=== PATIENT | female | born 1935 | race Caucasian/White ===

== ENCOUNTER 2018-10-30 08:40 | Emergency (ER) | payer MEDICARE ==
[~2018-10-30] VITALS: Ht 154.9 cm; Wt 44.9 kg
--- NOTE | 2018-10-30 09:04 | NUR ---
PT REPORTS HAVING MULTIPLE GI ISSUES FROM CONTIPATION WHICH SHE RECIEVED AND [facility] FOR (SHE REPORTS HAVING "GI UPSET FOR ONE MONTH", NOW PT REPORTS DIARHHEA/VOMITTING FOR THE PAST TWO DAYS. SHE STATES SHE HAS NOT BEEN ABLE TO KEEP FOOD OR DRINK DOWN SINCE YESTERDAY 10/29. PT ON NIBP, CONT PULSE OX. FAMLIY AT BEDSIDE.
[2018-10-30] MEDS ORDERED: SODIUM CHLORIDE FLUSH 10ML SYR IVF ONE (09:30)
--- NOTE | 2018-10-30 09:54 | NUR ---
PIV INITIATED, PT TO GO TO CT ABD. LABS DRAWN, SIG OTHER AT BEDSIDE, NO NEEDS AT THIS TIME
[2018-10-30 10:11] LABS: BASOPHILS # (AUTO) 0.02 x10^3/uL (0-0.1); BASOPHILS % (AUTO) 0 % (0-1); EOSINOPHILS # (AUTO) 0.05 x10^3/uL (0-0.4); EOSINOPHILS % (AUTO) 1 % (1-7); LYMPHOCYTES # (AUTO) 0.73 x10^3/uL (1-3.4); LYMPHOCYTES % (AUTO) 10 % (22-44); MD NO; MEAN CORPUSCULAR HEMOGLOBIN 32.1 pg (27.0-34.8); MEAN CORPUSCULAR HGB CONC 33.4 g/dL (32.4-35.8); MEAN CORPUSCULAR VOLUME 96.2 fL (80-100); MEAN PLATELET VOLUME 8.5 fL (7.4-10.4); MONOCYTES # (AUTO) 0.58 x10^3/uL (0.2-0.8); MONOCYTES % (AUTO) 8 % (2-9); NEUTROPHILS # (AUTO) 5.63 x10^3/uL (1.8-6.8); NEUTROPHILS % (AUTO) 80 % (42-75); PLATELET COUNT 210 x10^3/uL (130-400); RED BLOOD COUNT 4.38 x10^6/uL (3.82-5.3); RED CELL DISTRIBUTION WIDTH 13.5 % (9.6-15.2)
[2018-10-30 10:19] LABS: ALANINE AMINOTRANSFERASE 21 U/L (12-78); ALBUMIN 3.8 g/dL (3.4-5.0); ANION GAP 10 mmol/L (5-15); CALCIUM 9.7 mg/dL (8.5-10.1); CHLORIDE 109 mmol/L (98-107); CREATININE 1.56 mg/dL (0.55-1.02)
[2018-10-30 10:21] LABS: ALKALINE PHOSPHATASE 58 U/L (45-117); BILIRUBIN,TOTAL 0.7 mg/dL (0.2-1.0); TOTAL PROTEIN 7.4 g/dL (6.4-8.2)
--- NOTE | 2018-10-30 11:07 | NUR ---
PT WALKED TO RESTROOM, UA SENT
[2018-10-30 11:23] VITALS: BP 146/70
[2018-10-30 11:39] LABS: MICROSCOPIC AUTO
[2018-10-30 11:44] LABS: CULTURE INDICATED? YES
--- NOTE | 2018-10-30 12:05 | NUR ---
[facility] UPDATED PT ON POC, PT DENIES NEEDS AT THIS TIME. RESTING COMFORTABLY ON GURNEY
--- NOTE | 2018-10-30 12:34 | NUR ---
Patient/Caregiver given discharge instructions and they have confirmed that they understand the instructions. Patient ambulatory with steady gait.
== END 2018-10-30 12:54 | disposition home or self-care (01) ==
LOC: ED 10:13
DX: K29.50 Unspecified chronic gastritis without bleeding (principal); N28.9 Disorder of kidney and ureter, unspecified; N30.00 Acute cystitis without hematuria; I10 Essential (primary) hypertension
CPT/HCPCS: 36415; 74176; 80053; 81001; 83605; 83690; 85025; 87086; 93005; 99284

== ENCOUNTER 2018-11-07 08:50 | Inpatient (IN) | payer MEDICARE ==
[~2018-11-07] VITALS: Ht 154.9 cm; Wt 46.9 kg
--- NOTE | 2018-11-07 09:24 | NUR ---
orieted to room. pt in gown. connected to monitor.
--- NOTE | 2018-11-07 09:35 | NUR ---
PA at bs.
--- NOTE | 2018-11-07 09:35 | NUR ---
pt states this has been an ongiong issue for her. seen here for the same symptoms a few days ago. has a confirmed appointment with the [facility] but not until december. descibes her vomitus as green, thick. unable to keep anything down including blood pressure medications.
[2018-11-07] MEDS ORDERED: ONDANSETRON 2MG/ML, 2ML ONE (09:58)
[2018-11-07] MEDS ORDERED: FAMOTIDINE 20 MG/2 ML ONE (09:58)
[2018-11-07] MEDS ORDERED: FAMOTIDINE 20 MG/2 ML IVP ONE (10:00)
[2018-11-07] MEDS ORDERED: ONDANSETRON 2MG/ML, 2ML IVPush ONE (10:00)
[2018-11-07] MEDS ORDERED: SODIUM CHLORIDE FLUSH 10ML SYR IVF ONE (10:00)
--- NOTE | 2018-11-07 10:18 | NUR ---
recieved report from suki fuller. dr. ballard at bedside. pt medicated per md order.
[2018-11-07 10:30] LABS: BASOPHILS % (AUTO) 0 % (0-1); EOSINOPHILS # (AUTO) 0.16 x10^3/uL (0-0.4); EOSINOPHILS % (AUTO) 2 % (1-7); LYMPHOCYTES # (AUTO) 0.69 x10^3/uL (1-3.4); LYMPHOCYTES % (AUTO) 8 % (22-44); MD NO; MEAN CORPUSCULAR HGB CONC 33.4 g/dL (32.4-35.8); MEAN CORPUSCULAR VOLUME 98.8 fL (80-100); MEAN PLATELET VOLUME 9.4 fL (7.4-10.4); MONOCYTES # (AUTO) 0.73 x10^3/uL (0.2-0.8); MONOCYTES % (AUTO) 9 % (2-9); NEUTROPHILS # (AUTO) 6.78 x10^3/uL (1.8-6.8); NEUTROPHILS % (AUTO) 81 % (42-75); PLATELET COUNT 210 x10^3/uL (130-400); RED BLOOD COUNT 4.66 x10^6/uL (3.82-5.3); RED CELL DISTRIBUTION WIDTH 13.2 % (9.6-15.2)
[2018-11-07 10:40] LABS: CHLORIDE 105 mmol/L (98-107)
[2018-11-07 10:41] LABS: ALANINE AMINOTRANSFERASE 24 U/L (12-78); ALBUMIN 4.2 g/dL (3.4-5.0); ANION GAP 11 mmol/L (5-15); CALCIUM 10.3 mg/dL (8.5-10.1); CREATININE 1.53 mg/dL (0.55-1.02)
[2018-11-07 10:51] LABS: ALKALINE PHOSPHATASE 77 U/L (45-117); BILIRUBIN,TOTAL 0.7 mg/dL (0.2-1.0); TOTAL PROTEIN 8.2 g/dL (6.4-8.2)
[2018-11-07] MEDS ORDERED: FAMO-79 PO (11:16)
[2018-11-07] MEDS ORDERED: METO10TA2 PO (11:16)
[2018-11-07] MEDS ORDERED: CEFD300C37 PO (11:16)
[2018-11-07] MEDS ORDERED: OMEP-110 PO (11:16)
[2018-11-07] MEDS ORDERED: AMLO-150 PO (11:18)
[2018-11-07] MEDS ORDERED: LOSA1TAB19 PO (11:18)
[2018-11-07 11:26] LABS: CULTURE INDICATED? YES; MICROSCOPIC INDICATED
[2018-11-07 12:12] VITALS: BP 127/73
[2018-11-07 12:50] VITALS: BP 154/78
[2018-11-07] MEDS ORDERED: BISACODYL 10 MG SUPP PR PRN (13:00)
[2018-11-07] MEDS ORDERED: LABETALOL 5MG/ML, 20ML IVPush PRN (13:00)
[2018-11-07] MEDS ORDERED: hydrALAzine 20 MG/ML, 1ML IVPush PRN (13:00)
[2018-11-07] MEDS ORDERED: LIDODERM 5% PATCH TD PRN (13:00)
[2018-11-07] MEDS ORDERED: ONDANSETRON ODT 4 MG PO PRN (13:00)
[2018-11-07] MEDS: HEPARIN 5,000 UNITS/ML, 1ML SQ SCH ×2 (13:00→20:04)
[2018-11-07] MEDS ORDERED: ACETAMINOPHEN 325 MG TABLET PO PRN (13:00)
[2018-11-07] MEDS: LACTATED RINGERS 1,000 ML IV SCH ×2 (13:51→22:23)
[2018-11-07 14:57] LABS: C-REACTIVE PROTEIN, QUANT 0.41 mg/dL (0.02-0.49)
[2018-11-07 15:01] LABS: FREE T4 (FREE THYROXINE) 1.64 ng/dL (0.76-1.46); TROPONIN I < 0.015 ng/mL (0.000-0.045)
[2018-11-07 15:03] LABS: HEMOGLOBIN A1C 5.5 % (4.2-6.3)
[2018-11-07 18:58] VITALS: BP 165/81
[2018-11-07 19:07] LABS: TROPONIN I < 0.015 ng/mL (0.000-0.045)
[2018-11-07] MEDS: ONDANSETRON 2MG/ML, 2ML IVPush PRN (20:04)
[2018-11-08 01:30] VITALS: BP 119/73
[2018-11-08] MEDS: HEPARIN 5,000 UNITS/ML, 1ML SQ SCH ×3 (05:44→21:49)
[2018-11-08] MEDS: ONDANSETRON 2MG/ML, 2ML IVPush PRN ×2 (05:45→16:11)
[2018-11-08 06:34] LABS: MEAN CORPUSCULAR HEMOGLOBIN 32.8 pg (27.0-34.8); MEAN CORPUSCULAR HGB CONC 33.1 g/dL (32.4-35.8); MEAN CORPUSCULAR VOLUME 98.9 fL (80-100); MEAN PLATELET VOLUME 9.9 fL (7.4-10.4); PLATELET COUNT 193 x10^3/uL (130-400); RED BLOOD COUNT 4.26 x10^6/uL (3.82-5.3); RED CELL DISTRIBUTION WIDTH 13.4 % (9.6-15.2)
[2018-11-08 06:37] LABS: ANION GAP 11 mmol/L (5-15); CALCIUM 9.7 mg/dL (8.5-10.1); CHLORIDE 105 mmol/L (98-107); CREATININE 1.55 mg/dL (0.55-1.02)
[2018-11-08 06:41] VITALS: BP 146/79
[2018-11-08 06:50] LABS: BASOPHILS % (AUTO) 0 % (0-1); EOSINOPHILS # (AUTO) 0.01 x10^3/uL (0-0.4); EOSINOPHILS % (AUTO) 0 % (1-7); LYMPHOCYTES # (AUTO) 0.29 x10^3/uL (1-3.4); LYMPHOCYTES % (AUTO) 2 % (22-44); MD SCAN; MONOCYTES # (AUTO) 0.28 x10^3/uL (0.2-0.8); MONOCYTES % (AUTO) 2 % (2-9); NEUTROPHILS % (AUTO) 96 % (42-75)
[2018-11-08] MEDS: AMLODIPINE 5 MG TABLET PO SCH (07:26)
[2018-11-08] MEDS ORDERED: PANTOPRAZOLE 40 MG IV IVPush SCH (07:30)
[2018-11-08] MEDS ORDERED: SINCALIDE (KINEVAC) 5 MCG ONE (08:34)
[2018-11-08] MEDS: LACTATED RINGERS 1,000 ML IV SCH ×2 (10:15→21:48)
[2018-11-08 12:01] LABS: FREE T4 (FREE THYROXINE) 1.66 ng/dL (0.76-1.46); THYROID STIMULATING HORMONE 0.77 mIU/L (0.358-3.740)
[2018-11-08 13:06] VITALS: BP 158/78
[2018-11-08] MEDS: METHIMAZOLE 5 MG TAB PO SCH (18:16)
[2018-11-08] MEDS: METOCLOPRAMIDE 5 MG/ML, 2ML IVPush PRN (18:16)
[2018-11-08 18:44] VITALS: BP 107/67
[2018-11-08 18:54] VITALS: BP 147/76
[2018-11-09] MEDS: METHIMAZOLE 5 MG TAB PO SCH ×2 (01:12→08:59)
[2018-11-09 02:16] VITALS: BP 131/63
[2018-11-09 05:19] LABS: BASOPHILS # (AUTO) 0.03 x10^3/uL (0-0.1); BASOPHILS % (AUTO) 0 % (0-1); EOSINOPHILS # (AUTO) 0.21 x10^3/uL (0-0.4); EOSINOPHILS % (AUTO) 3 % (1-7); LYMPHOCYTES % (AUTO) 6 % (22-44); MD NO; MEAN CORPUSCULAR HEMOGLOBIN 32.9 pg (27.0-34.8); MEAN CORPUSCULAR HGB CONC 33.5 g/dL (32.4-35.8); MEAN CORPUSCULAR VOLUME 98.3 fL (80-100); MEAN PLATELET VOLUME 9.7 fL (7.4-10.4); MONOCYTES % (AUTO) 8 % (2-9); NEUTROPHILS % (AUTO) 83 % (42-75); PLATELET COUNT 137 x10^3/uL (130-400); RED BLOOD COUNT 3.48 x10^6/uL (3.82-5.3); RED CELL DISTRIBUTION WIDTH 13.3 % (9.6-15.2)
[2018-11-09 05:30] LABS: ANION GAP 9 mmol/L (5-15); CALCIUM 8.7 mg/dL (8.5-10.1); CHLORIDE 109 mmol/L (98-107)
[2018-11-09 05:33] LABS: CREATININE 1.25 mg/dL (0.55-1.02)
[2018-11-09] MEDS: PANTOPROZOLE 40MG TABLET PO SCH (05:43)
[2018-11-09] MEDS: HEPARIN 5,000 UNITS/ML, 1ML SQ SCH ×3 (05:44→20:23)
[2018-11-09 07:02] VITALS: BP 137/66
[2018-11-09] MEDS: LACTATED RINGERS 1,000 ML IV SCH ×2 (08:08→20:23)
[2018-11-09] MEDS: AMLODIPINE 5 MG TABLET PO SCH (08:59)
[2018-11-09 10:48] LABS: FREE T4 (FREE THYROXINE) 1.58 ng/dL (0.76-1.46); THYROID STIMULATING HORMONE 1.16 mIU/L (0.358-3.740)
[2018-11-09] MEDS ORDERED: GADOBUTROL 7.5 MMOL/7.5 ML PFS ONE (11:00)
[2018-11-09 12:50] VITALS: BP 149/74
[2018-11-09 18:59] VITALS: BP 150/69
[2018-11-09] MEDS: ONDANSETRON 2MG/ML, 2ML IVPush PRN (19:58)
[2018-11-09] MEDS: METOCLOPRAMIDE 5 MG/ML, 2ML IVPush PRN (21:31)
[2018-11-10 01:23] VITALS: BP 147/60
[2018-11-10 02:47] LABS: TROPONIN I 0.025 ng/mL (0.000-0.045)
[2018-11-10 05:34] LABS: BASOPHILS # (AUTO) 0.02 x10^3/uL (0-0.1); BASOPHILS % (AUTO) 0 % (0-1); EOSINOPHILS # (AUTO) 0.13 x10^3/uL (0-0.4); EOSINOPHILS % (AUTO) 2 % (1-7); LYMPHOCYTES # (AUTO) 0.83 x10^3/uL (1-3.4); LYMPHOCYTES % (AUTO) 11 % (22-44); MD NO; MEAN CORPUSCULAR HEMOGLOBIN 32.9 pg (27.0-34.8); MEAN CORPUSCULAR HGB CONC 33.6 g/dL (32.4-35.8); MEAN CORPUSCULAR VOLUME 98.1 fL (80-100); MEAN PLATELET VOLUME 9.9 fL (7.4-10.4); MONOCYTES # (AUTO) 0.68 x10^3/uL (0.2-0.8); MONOCYTES % (AUTO) 9 % (2-9); NEUTROPHILS % (AUTO) 78 % (42-75); PLATELET COUNT 153 x10^3/uL (130-400); RED BLOOD COUNT 3.56 x10^6/uL (3.82-5.3); RED CELL DISTRIBUTION WIDTH 13.1 % (9.6-15.2)
[2018-11-10 05:43] LABS: ANION GAP 9 mmol/L (5-15); CHLORIDE 107 mmol/L (98-107); CREATININE 1.07 mg/dL (0.55-1.02)
[2018-11-10] MEDS: LACTATED RINGERS 1,000 ML IV SCH (05:53)
[2018-11-10] MEDS: PANTOPROZOLE 40MG TABLET PO SCH (05:53)
[2018-11-10] MEDS: HEPARIN 5,000 UNITS/ML, 1ML SQ SCH ×2 (05:53→14:27)
[2018-11-10 06:00] LABS: TROPONIN I 0.025 ng/mL (0.000-0.045)
[2018-11-10 07:20] VITALS: BP 144/70
[2018-11-10] MEDS: AMLODIPINE 5 MG TABLET PO SCH (08:29)
[2018-11-10 09:53] LABS: TROPONIN I 0.024 ng/mL (0.000-0.045)
[2018-11-10 11:58] LABS: TROPONIN I < 0.015 ng/mL (0.000-0.045)
[2018-11-10 12:30] VITALS: BP 156/75
[2018-11-10] MEDS: ONDANSETRON 2MG/ML, 2ML IVPush PRN (13:56)
[2018-11-10] MEDS ORDERED: ONDA4TAB7 PO (16:04)
== END 2018-11-10 19:00 | disposition home or self-care (01) | DRG 684 ==
LOC: ED 11:13 → EDIP 11:14 → ED 11:36 → 3NE 11:55
PROVIDERS: ADMIT Internal Medicine; ATTEND Internal Medicine
DX: N17.0 Acute kidney failure with tubular necrosis (principal); E05.90 Thyrotoxicosis, unspecified without thyrotoxic crisis or storm; E83.52 Hypercalcemia; I10 Essential (primary) hypertension; M41.9 Scoliosis, unspecified; Z82.49 Family history of ischemic heart disease and other diseases of the circulatory system; Z87.891 Personal history of nicotine dependence; Z88.0 Allergy status to penicillin; Z88.2 Allergy status to sulfonamides
CPT/HCPCS: 36415; 70553; 74022; 76536; 78227; 80048; 80053; 81001; 82150; 83036; 83690; 84439; 84443; 84480; 84481; 84484; 85025; 85651; 86140; 86376; 86800; 87086; 87106; 93005; 96374; 96375; A9585; G0378; J1644; J2405; A9537; C9113; C9898; J2765; J2805; J3490; J7120